=== PATIENT | female | born 1990 | race Caucasian/White ===

== ENCOUNTER 2022-04-16 13:35 | Inpatient (IN) | payer BC ==
[2022-04-16] MEDS ORDERED: Lidocaine 1% 50 ML MDV INJECT PRN (14:27)
[2022-04-16] MEDS ORDERED: Ampicillin 2 GM in Sodium Chloride 0.9% 100 ML IV ONE (14:27)
[2022-04-16] MEDS ORDERED: Nalbuphine HCl 10 MG/ 1ML Amp IVPUSH PRN (14:27)
[2022-04-16] MEDS ORDERED: Oxytocin/Lactated Ringers 10 UNIT/1,000 ML BAG IV SCH ×2 (14:30)
[2022-04-16] MEDS: Lactated Ringers 1,000 ML IV SCH ×3 (14:39→22:39)
[2022-04-16] MEDS ORDERED: Bupivacaine/fentaNYL/NS 100 ML Bag EPIDUR PRN (17:08)
[2022-04-16] MEDS ORDERED: ePHEDrine 50 MG/ML SDV IVPUSH PRN (17:08)
[2022-04-16] MEDS ORDERED: diphenhydrAMINE 50 MG/ML SDV IVPUSH PRN (17:08)
[2022-04-16] MEDS: fentaNYL 100 MCG/2 ML SDV EPIDUR PRN ×2 (17:20→22:37)
[2022-04-16] MEDS: Ampicillin 1 GM in Sodium Chloride 0.9% 100 ML IV SCH ×2 (18:30→22:38)
[2022-04-16] MEDS ORDERED: Ondansetron 4 MG/2 ML SDV IVPUSH PRN (22:21)
[2022-04-17] MEDS ORDERED: Benzocaine/Menthol 20%-0.5% Spray 78 GM Cannister TOP PRN (00:54)
[2022-04-17] MEDS ORDERED: Witch Hazel Medicated Pads 40/Jar TOP PRN (00:54)
[2022-04-17] MEDS ORDERED: Acetaminophen 325 MG Tab PO PRN (00:54)
[2022-04-17] MEDS ORDERED: Bupivacaine 0.25% 10 ML SDV ONE (03:00)
[2022-04-17] MEDS ORDERED: Lidocaine 1.5% with EPINEPHrine 1:200,000 5 ML Amp ONE (03:00)
[2022-04-17] MEDS: Ibuprofen 600 MG Tab PO PRN ×3 (06:58→20:00)
== END 2022-04-18 06:24 | disposition home or self-care (01) | DRG 560 ==
LOC: JD.OBCHECK 13:35 → JD.OB 13:40 → JD.OBCHECK 14:28 → JD.OB 14:28 → OBSVTOIN 04-17 → JD.OB 04-17 00:01
PROVIDERS: ADMIT Obstetrics & Gynecology; ATTEND Obstetrics & Gynecology
PROC: 10E0XZZ Delivery of Products of Conception, External Approach (ICD-10-PCS; principal; 2022-04-17)
PROC: 0UQMXZZ Repair Vulva, External Approach (ICD-10-PCS; 2022-04-17)
PROC: 3E0R3BZ Introduction of Anesthetic Agent into Spinal Canal, Percutaneous Approach (ICD-10-PCS; 2022-04-17)
DX: O99.284 Endocrine, nutritional and metabolic diseases complicating childbirth (principal); E89.0 Postprocedural hypothyroidism; Z3A.38 38 weeks gestation of pregnancy; Z37.0 Single live birth; O70.0 First degree perineal laceration during delivery; O99.344 Other mental disorders complicating childbirth; F32.A Depression, unspecified; F41.9 Anxiety disorder, unspecified
CPT/HCPCS: 01967; 36415; 51702; 59025; 59409; 85025; 86592; A9270-GY; J0290; J2405; J2590; J3010; J3490; J7120

== ENCOUNTER 2022-05-19 18:59 | Emergency (ER) | payer BC ==
[2022-05-19] MEDS ORDERED: Potassium Chloride 20 MEQ Tab.ER PO ONE (22:04)
== END 2022-05-19 22:19 | disposition home or self-care (01) ==
LOC: JD.ED 18:59
DX: O72.1 Other immediate postpartum hemorrhage (principal); Z88.0 Allergy status to penicillin; Z86.16 Personal history of COVID-19
CPT/HCPCS: 36415; 80053; 81001; 84443; 84550; 85025; 85610; 85730; 99284; A9270

== ENCOUNTER 2023-05-18 06:59 | Day surgery (SDC) | payer BC ==
[~2023-05-18 06:59] MED LIST: Dexamethasone 4 MG/ML 5 ML MDV ONE; Lactated Ringers 1,000 ML IV SCH; Lidocaine 2% 100 MG/5 ML Syringe ONE; Midazolam 1 MG/ML 2 ML SDV ONE; Ondansetron 4 MG/2 ML SDV ONE; Propofol 200 MG/20 ML SDV ONE; Sodium Chloride 0.9% 10 ML Syringe FLUSH PRN; Sodium Chloride 0.9% 10 ML Syringe FLUSH SCH; fentaNYL 100 MCG/2 ML SDV ONE
[2023-05-18] MEDS ORDERED: ceFAZolin 2 GM Vial ONE (07:09)
[2023-05-18] MEDS ORDERED: HYDROmorphone 0.5 MG/0.5 ML Syringe IVPUSH PRN (07:24)
[2023-05-18] MEDS ORDERED: Ondansetron 4 MG/2 ML SDV IVPUSH PRN (07:24)
[2023-05-18] MEDS: Lactated Ringers 1,000 ML IV SCH ×2 (07:25→10:00)
[2023-05-18] MEDS ORDERED: EPINEPHrine 1 MG/ML SDV ONE (07:26)
[2023-05-18] MEDS ORDERED: Lidocaine 1% 10 ML MDV ONE (07:26)
[2023-05-18] MEDS ORDERED: Bupivacaine 0.5% 30 ML SDV ONE (07:26)
[2023-05-18] MEDS ORDERED: Lidocaine 1% 30 ML SDV ONE (07:31)
[2023-05-18] MEDS ORDERED: Scopolamine 1.5 MG Transdermal Patch TRDERM ONE (07:38)
[2023-05-18] MEDS ORDERED: Lidocaine 2% 11 ML Jelly Filled Syringe ONE (08:00)
[2023-05-18] MEDS: fentaNYL 100 MCG/2 ML SDV IVPUSH PRN ×2 (09:49→10:09)
[2023-05-18] MEDS ORDERED: Ketorolac 30 MG/ML SDV IVPUSH SCH (10:00)
[2023-05-18] MEDS ORDERED: Acetaminophen/HYDROcodone 325-5 MG Tab PO PRN (10:46)
[2023-05-18] MEDS ORDERED: Acetaminophen/oxyCODONE 325-5 MG Tab PO ONE (12:30)
== END 2023-05-18 12:35 | disposition home or self-care (01) ==
LOC: JD.SDS 06:59
PROVIDERS: ATTEND Surgery
DX: K42.9 Umbilical hernia without obstruction or gangrene (principal); N76.89 Other specified inflammation of vagina and vulva; K21.9 Gastro-esophageal reflux disease without esophagitis; F41.9 Anxiety disorder, unspecified; F32.A Depression, unspecified; E03.9 Hypothyroidism, unspecified; Z88.8 Allergy status to other drugs, medicaments and biological substances; Z79.890 Hormone replacement therapy; Z79.899 Other long term (current) drug therapy; Z87.891 Personal history of nicotine dependence
CPT/HCPCS: 49591; 56620; 81025; A9270; J0171; J0690; J1100; J1170; J1885; J2250; J2405; J2704; J3010; J3490; J7120